=== PATIENT | male | born 2005 | race Caucasian/White ===

== ENCOUNTER 2023-08-12 15:58 | Emergency (ER) | payer OTHER ==
[~2023-08-12] VITALS: Ht 177.8 cm; Wt 74.7 kg
[2023-08-12] MEDS ORDERED: MEDR4PAK PO (17:38)
[2023-08-12] MEDS ORDERED: METH-1165 PO (17:38)
[2023-08-12] MEDS: LIDOCAINE 5% (LIDODERM) PATCH TD ONE (17:40)
[2023-08-12 17:48] VITALS: BP 127/77; TEMP 98.4; O2SAT 98
== END 2023-08-12 17:50 | disposition home or self-care (01) ==
LOC: M ED 15:58
DX: S39.012A Strain of muscle, fascia and tendon of lower back, initial encounter (principal); M54.31 Sciatica, right side; X50.0XXA Overexertion from strenuous movement or load, initial encounter; Z79.891 Long term (current) use of opiate analgesic; Z79.52 Long term (current) use of systemic steroids; Y92.009 Unspecified place in unspecified non-institutional (private) residence as the place of occurrence of the external cause; Y93.89 Activity, other specified; Y99.9 Unspecified external cause status